=== PATIENT | female | born 1995 | race Two or more races ===

== ENCOUNTER 2017-03-07 17:37 | Emergency (ER) | payer SELFPAY ==
[~2017-03-07] VITALS: Ht 167.6 cm; Wt 65.8 kg
--- NOTE | 2017-03-07 17:38 | NUR ---
PT AMBULATORY TO ER BED 09 C/O RLE (CALF AREA ) PAIN X 1 MONTH. PT STATES PAIN IS ON AND OFF AND IS WORST TODAY. HX OF DVT 4 YEARS AGO. DENIES SOB/CHEST PAIN. GOWNED AND PLACED ON MONITOR. STABLE VITALS. AWAITING MD COMER.
--- NOTE | 2017-03-07 17:51 | NUR ---
DR NERI AT BEDSIDE FOR EVAL.
[2017-03-07 18:22] LABS: BASOPHILS # (AUTO) 0.1 /CMM (0.0-0.2); BASOPHILS % (AUTO) 0.8 % (0.0-2.0); EOSINOPHILS # (AUTO) 0.2 /CMM (0.0-0.7); EOSINOPHILS % (AUTO) 1.1 % (0.0-6.0); HEMATOCRIT 46 % (33-45); HEMOGLOBIN 15.2 g/dL (11.5-14.8); LYMPHOCYTES # (AUTO) 3.4 /CMM (0.8-4.8); LYMPHOCYTES % (AUTO) 23.6 % (20.0-44.0); MEAN CORPUSCULAR HEMOGLOBIN 30 PG (26.0-33.0); MEAN CORPUSCULAR HGB CONC 33 g/dl (31.0-36.0); MEAN CORPUSCULAR VOLUME 91 fL (82-100); MONOCYTES # (AUTO) 0.8 /CMM (0.1-1.30); MONOCYTES % (AUTO) 5.8 % (2.0-12.0); NEUTROPHILS # (AUTO) 9.8 /CMM (1.8-8.9); NEUTROPHILS % (AUTO) 68.7 % (43.0-81.0); PLATELET COUNT (AUTO) 347 /CMM (150-450); RDW COEFFICIENT OF VARIATION 12.4 (11.5-15.0); RED BLOOD CELL COUNT(AUTO) 5.05 MIL/uL (4.0-5.2); WHITE BLOOD COUNT (AUTO) 14.3 K/uL (4.3-11.0)
[2017-03-07 18:37] LABS: INR 0.99 (0.87-1.13); PROTHROMBIN TIME 10.3 SECS (9.5-12.7)
--- NOTE | 2017-03-07 19:03 | NUR ---
Patient discharged to home in stable condition. Written and verbal after care instructions given. Patient verbalizes understanding of instruction.
[2017-03-07 19:05] VITALS: BP 117/71
== END 2017-03-07 19:06 | disposition home or self-care (01) ==
LOC: ER 17:39
DX: M79.661 Pain in right lower leg (principal); G89.29 Other chronic pain; F17.200 Nicotine dependence, unspecified, uncomplicated; Z86.718 Personal history of other venous thrombosis and embolism
CPT/HCPCS: 36415; 85025; 85730; 93971; 99285; A4606; Z7610